=== PATIENT | male | born 1950 | race Two or more races ===

== ENCOUNTER 2022-09-20 10:08 | Emergency (ER) | payer OTHER, MEDICARE ==
[~2022-09-20] VITALS: Ht 170.2 cm; Wt 102.1 kg
[2022-09-20 10:10] VITALS: BP_SYST 164
[2022-09-20] MEDS ORDERED: NITROGLYCERIN 0.4 MG TAB.SUBL SL ONE (10:30)
[2022-09-20 10:42] LABS: BASOPHILS # (AUTO) 0.1 K/uL (0.0-0.2); BASOPHILS % (AUTO) 0.9 % (0.0-2.0); EOSINOPHILS # (AUTO) 0.2 K/uL (0.0-0.4); EOSINOPHILS % (AUTO) 2.5 % (0.0-4.0); HEMATOCRIT 42.4 % (36-54); HEMOGLOBIN 14.4 g/dL (14.0-18.0); LYMPHOCYTES # (AUTO) 0.8 K/uL (1.0-5.5); LYMPHOCYTES % (AUTO) 11.4 % (20.5-51.5); MEAN CORPUSCULAR HEMOGLOBIN 31 pg (27-31); MEAN CORPUSCULAR HGB CONC 34 % (32-36); MEAN CORPUSCULAR VOLUME 91 fL (79.0-98.0); MONOCYTES # (AUTO) 0.6 K/uL (0.0-1.0); MONOCYTES % (AUTO) 9.2 % (1.7-9.3); NEUTROPHILS # (AUTO) 5.2 K/uL (1.8-7.7); PLATELET COUNT (AUTO) 219 K/uL (130-430); RED BLOOD CELL COUNT(AUTO) 4.64 MIL/uL (4.2-6.2); RED CELL DISTRIBUTION WIDTH 14.1 % (9.0-15.0); WHITE BLOOD COUNT (AUTO) 6.8 K/uL (4.8-10.8)
[2022-09-20 11:07] LABS: ALANINE AMINOTRANSFERASE 15 U/L (12-78); ALBUMIN 3.2 g/dL (3.4-4.8); ANION GAP 6 (5-15); ASPARTATE AMINOTRANSFERASE 10 U/L (10-37); CALCIUM 8.9 mg/dL (8.4-11.0); CHLORIDE 95 mmol/L (98-107); CREATININE 1.05 mg/dL (0.55-1.30); GLUCOSE 131 mg/dL (70-99); TOTAL BILIRUBIN 0.7 mg/dL (0.0-1.0); UREA NITROGEN, BLOOD 9 mg/dL (8-21)
[2022-09-20] MEDS ORDERED: METH-634 PO (11:15)
[2022-09-20] MEDS ORDERED: ACET-2634 PO (11:15)
[2022-09-20] MEDS ORDERED: LIDO1ADH71 TD (11:15)
[2022-09-20 11:29] VITALS: BP_SYST 149
== END 2022-09-20 11:29 | disposition home or self-care (01) ==
LOC: SED 10:08
DX: S56.912A Strain of unspecified muscles, fascia and tendons at forearm level, left arm, initial encounter (principal); M25.522 Pain in left elbow; Z79.899 Other long term (current) drug therapy; X58.XXXA Exposure to other specified factors, initial encounter; Y93.89 Activity, other specified; Y92.89 Other specified places as the place of occurrence of the external cause; Y99.8 Other external cause status
CPT/HCPCS: 36415; 71045; 80053; 84484; 85025; 93005; 99285

== ENCOUNTER 2022-12-13 12:27 | Inpatient (IN) | payer OTHER, MEDICARE ==
[~2022-12-13] VITALS: Ht 170.2 cm; Wt 104.8 kg
[~2022-12-13 12:27] MED LIST: ACET-2634 PO; LIDO1ADH71 TD; METH-634 PO
[2022-12-13 12:40] VITALS: BP_SYST 147
--- NOTE | 2022-12-13 12:40 | NUR ---
Patient triaged and placed in waiting room. VSS and patient appears in no acute distress at this time. Accompanied by SON, awaiting available bed, and MD notified of need for MSE.
[2022-12-13] MEDS ORDERED: NACL 0.9% 1,000 ML IV ONE (13:45)
--- NOTE | 2022-12-13 14:08 | NUR ---
Patient to ER bed 06 to gown for evaluation. Side rails up.
--- NOTE | 2022-12-13 14:10 | NUR ---
ER DR. RENNER AT THE BEDSIDE EXAMINING PT
[2022-12-13 14:12] LABS: HEMATOCRIT 41.5 % (36-54); HEMOGLOBIN 14.1 g/dL (14.0-18.0); MEAN CORPUSCULAR HEMOGLOBIN 31 pg (27-31); MEAN CORPUSCULAR HGB CONC 34 % (32-36); MEAN CORPUSCULAR VOLUME 92 fL (79.0-98.0); PLATELET COUNT (AUTO) 192 K/uL (130-430); RED BLOOD CELL COUNT(AUTO) 4.51 MIL/uL (4.2-6.2); RED CELL DISTRIBUTION WIDTH 14.2 % (9.0-15.0); WHITE BLOOD COUNT (AUTO) 12.6 K/uL (4.8-10.8)
[2022-12-13 14:20] LABS: ANION GAP 9 (5-15); CALCIUM 8.6 mg/dL (8.4-11.0); CHLORIDE 87 mmol/L (98-107); CREATININE 1.48 mg/dL (0.55-1.30); GLUCOSE 97 mg/dL (70-99); UREA NITROGEN, BLOOD 24 mg/dL (8-21)
[2022-12-13 14:25] LABS: ALANINE AMINOTRANSFERASE 27 U/L (12-78); ALBUMIN 2.7 g/dL (3.4-4.8); ASPARTATE AMINOTRANSFERASE 30 U/L (10-37); TOTAL BILIRUBIN 0.5 mg/dL (0.0-1.0)
[2022-12-13 14:30] LABS: BILIRUBIN,URINE 1+ (NEGATIVE); BLOOD, URINE 3+ (NEGATIVE); CLARITY/URINE CLOUDY (CLEAR); COLOR,URINE YELLOW (YELLOW); GLUCOSE,URINE NEGATIVE (NEGATIVE); KETONES,URINE TRACE (NEGATIVE); LEUKOCYTE ESTERASE ,URINE 2+ (NEGATIVE); NITRITE, URINE NEGATIVE (NEGATIVE); PH,URINE 5.5 (5.0-8.0); PROTEIN URINE 2+ (NEGATIVE); UROBILINOGEN,URINE 0.2 (0.2-1.0)
--- NOTE | 2022-12-13 14:35 | NUR ---
pt presents to ed with complain of abd pain x 4 days and diarrhea. pt is awake a/o x4 and verbally responsive. no acute distress noted. breathing even and unlabored. per son, pt went to urgent care and started on cipro po yesterday however continues to have pain. pt resting in gurney with son at bedside. iv started to r ac, tolerated well. no redness or swelling noted. flushed well with blood return. safety measures in place.
[2022-12-13 14:36] LABS: BACTERIA,URINE FEW /HPF (None Seen); WBC,URINE 20-50 /HPF (0-3)
[2022-12-13 14:37] LABS: COARSE GRANULAR CASTS,URINE 0-10 /LPF (None Seen)
[2022-12-13] MEDS ORDERED: cefTRIAXone 1 GM IVPB PREMIX 50 ML IV ONE (14:45)
[2022-12-13 14:49] LABS: ATYPICAL LYMPHOCYTES % 2 % (0-0); BAND % (MANUAL) 7 % (0-6); BASOPHILS % (MANUAL) 0 % (0-2); EOSINOPHILS % (MANUAL) 0 % (0-7); LYMPHOCYTES % (MANUAL) 7 % (20-46); MONOCYTES % (MANUAL) 9 % (0-11)
--- NOTE | 2022-12-13 15:12 | NUR ---
Report received from ALEX Shine for continuity of care. Patient in stable condition.
[2022-12-13] MEDS ORDERED: MORPHINE 2 MG/ML INJ. SYRINGE IVP PRN (16:15)
--- NOTE | 2022-12-13 17:09 | NUR ---
Admit bed requested Patient will be admitted to care of . Admitted to TELE unit. Diagnosis HYPONATREMIA, ACUTE COMPLICATED UTI Inpatient (Yes or No) YES Observation (Yes or No) NO Orientation concerns or request close to nursing station (Yes or No) NO Covid Status NEG On vent or bipap NO Isolation requirements NO Needs a sitter NO From Home (Yes or if No enter name of facility) HOME Requires Dialysis (Yes or No) NO Med Rec Completed (Yes of No) YES
[2022-12-13] MEDS ORDERED: HYDR-4038 PO (17:12)
[2022-12-13] MEDS ORDERED: EZET10TA30 PO (17:12)
[2022-12-13] MEDS ORDERED: OMEP20CA15 PO (17:12)
[2022-12-13] MEDS ORDERED: ROSU5TAB13 PO (17:12)
[2022-12-13] MEDS ORDERED: CIPR500T5 PO (17:12)
[2022-12-13] MEDS ORDERED: CARV25TA55 PO (17:12)
[2022-12-13] MEDS ORDERED: OLME40TA18 PO (17:12)
[2022-12-13] MEDS: NACL 0.9% 1,000 ML IV SCH (17:13)
--- NOTE | 2022-12-13 17:20 | NUR ---
CONSULTATION PAGED REASON FOR CONSULTATION: HYPONATREMIA/KAREN WAS CONSULT CALLED? Y PERSON WHO WAS NOTIFIED: APPLE CONSULTING PHYSICIAN: ANDREINA MOSQUERA (MARICHUY LINDSEY COMMUTATOR REPAIRER) RELIEF OPERATOR SPECIALTY: NEPHRO RELIEF OPERATOR PHONE NUMBER: [phone] REQUESTING PHYSICIAN:
[2022-12-13 17:27] LABS: ALANINE AMINOTRANSFERASE 26 U/L (12-78); ALBUMIN 2.4 g/dL (3.4-4.8); ANION GAP 8 (5-15); ASPARTATE AMINOTRANSFERASE 35 U/L (10-37); CHLORIDE 89 mmol/L (98-107); CREATININE 1.31 mg/dL (0.55-1.30); GLUCOSE 79 mg/dL (70-99); TOTAL BILIRUBIN 0.4 mg/dL (0.0-1.0); UREA NITROGEN, BLOOD 22 mg/dL (8-21)
--- NOTE | 2022-12-13 18:22 | NUR ---
Patient will be admitted to care of ALEX Pastrana. Admitted to unit. Will go to room . Belongings list completed. Complete and up to date summary report printed. SBAR report to be given at bedside with opportunity for questions.
--- NOTE | 2022-12-13 18:23 | NUR ---
Received SBAR report from Dexter RN, patient arrived via gurney to room 102A. . Vital sign : BP152/86, HR 99, RR20, saturation 99% room air, no c/o pain/SOB, respiration even and unlabored IV infusing to right AC patent. Orientate patient to room/ environment, all safety secured will endorse to oncoming nurse
[2022-12-13 18:29] VITALS: BP_SYST 152
[2022-12-13] MEDS ORDERED: CALCIUM GLUCONATE 1 GM in NS 100 ML IV ONE (18:30)
[2022-12-13] MEDS ORDERED: POTASSIUM CHLORIDE 40 MEQ, LIDOCAINE JECT 2% PF 100 MG 50 MG in NS 250 ML IV ONE (18:30)
--- NOTE | 2022-12-13 18:30 | NUR ---
Tech at bedside for STAT Abdominal ultrasound
[2022-12-13 20:05] VITALS: BP_SYST 144
--- NOTE | 2022-12-13 20:05 | NUR ---
PM ASSESSMENT; - Patient is awake, alert, oriented X 4. Patient oriented to hospital room, call light, toileting, pain management and safety-teach back done. Patient informed that I (Neyda) will be his nurse and that their room number is 102-A. Pt denies any chest pain,pain,sob,or any acute distress. Side rails x2,Call light within reach. Discussed poc,all safety measures with pt and spouse at bedside if experiencing any sob,pain,chest pain to use call light to inform nurse, they verbalized understanding. Dr. Garner (Nephro) is at bedside will check new order and carry out. Cont to monitor pt.
[2022-12-13 20:06] VITALS: BP_SYST 144
[2022-12-13] MEDS ORDERED: CALCIUM GLUCONATE 1 GM/10 ML VIAL ONE (20:12)
[2022-12-13] MEDS ORDERED: KCL 40 mEq in 100 mL (PREMIX) 100 ML IV ONE (20:13)
[2022-12-13] MEDS ORDERED: LIDOCAINE 1%, 20 ML MDV 20 ML ONE (20:14)
[2022-12-13] MEDS ORDERED: MELATONIN 5 MG TABLET PO PRN (22:15)
--- NOTE | 2022-12-13 22:15 | NUR ---
NOTES; CALLED DR. LOWE REGARDING PT TAKES NYQUIL COLD & FLU OTC FOR SLEEP, MD DOESN'T RECOMMEND THIS INSTEAD MD ORDERED MELATONIN 10MG PO QHS PRN SLEEP. INFORMED PT THAT MD DOESN'T WANT HIM TO TAKE FOR SLEEP, HE VERBALIZED UNDERSTANDING.
[2022-12-14] MEDS ORDERED: ASPI-859 PO (00:02)
[2022-12-14 00:14] VITALS: BP_SYST 131
--- NOTE | 2022-12-14 01:47 | NUR ---
ROUNDS; -Pt is asleep. No s/s any acute distress noted. IVF infusing well, no s/s any infiltration noted. All safety measures in place. Call light w/in reach. Cont to monitor pt.
--- NOTE | 2022-12-14 04:05 | NUR ---
ROUNDS; -Pt is resting in bed comfortably. No s/s any acute distress noted. All safety measures in place. Call light w/in reach. Cont to monitor pt.
[2022-12-14] MEDS: NACL 0.9% 1,000 ML IV SCH ×3 (05:22→22:30)
--- NOTE | 2022-12-14 06:31 | NUR ---
CLOSING NOTES; -Pt is resting in bed comfortably. NO s/s any acute distress noted. Iv site patent no s/s any infiltration noted. IVF NS @100ml/hr. All safety measures in place. Pt's condition stable. Will endorse to next nurse to continuity of care.
--- NOTE | 2022-12-14 06:52 | NUR ---
NOTES; COLLECTED PASTY DARK GREEN STOOL SAMPLE FOR C-DIFF AND SENT TO LAB.
[2022-12-14 07:00] LABS: BASOPHILS % (AUTO) 0.4 % (0.0-2.0); EOSINOPHILS # (AUTO) 0.1 K/uL (0.0-0.4); EOSINOPHILS % (AUTO) 0.8 % (0.0-4.0); HEMATOCRIT 37.1 % (36-54); HEMOGLOBIN 12.6 g/dL (14.0-18.0); LYMPHOCYTES # (AUTO) 0.9 K/uL (1.0-5.5); LYMPHOCYTES % (AUTO) 10.2 % (20.5-51.5); MEAN CORPUSCULAR HEMOGLOBIN 31 pg (27-31); MEAN CORPUSCULAR HGB CONC 34 % (32-36); MEAN CORPUSCULAR VOLUME 92 fL (79.0-98.0); MONOCYTES # (AUTO) 1.5 K/uL (0.0-1.0); MONOCYTES % (AUTO) 17.2 % (1.7-9.3); NEUTROPHILS % (AUTO) 71.4 % (40.0-70.0); PLATELET COUNT (AUTO) 161 K/uL (130-430); RED BLOOD CELL COUNT(AUTO) 4.05 MIL/uL (4.2-6.2); WHITE BLOOD COUNT (AUTO) 8.5 K/uL (4.8-10.8)
[2022-12-14 07:39] LABS: ALANINE AMINOTRANSFERASE 37 U/L (12-78); ALBUMIN 2.1 g/dL (3.4-4.8); ANION GAP 10 (5-15); ASPARTATE AMINOTRANSFERASE 48 U/L (10-37); CALCIUM 7.9 mg/dL (8.4-11.0); CHLORIDE 93 mmol/L (98-107); CREATININE 1.13 mg/dL (0.55-1.30); GLUCOSE 96 mg/dL (70-99); THYROID STIMULATING HORMONE 1.19 uIu/mL (0.34-4.82); TOTAL BILIRUBIN 0.4 mg/dL (0.0-1.0); UREA NITROGEN, BLOOD 17 mg/dL (8-21)
--- NOTE | 2022-12-14 07:52 | NUR ---
OPENING NOTES: PATIENT IN BED A/OX 4. NO S/S OF DISTRESS OR PAIN REPORTED. BREATHING IS EVEN AND UNLABORED ON RA 99%. IV FLUID RUNNING PRESCRIBED. EDUCATED PATIENT ON USE OF CALL LIGHT. PATIENT VERBALIZED UNDERSTANDING. ALL NEEDS MET AT THIS TIME, SAFETY CHECKS MADE AND CALL LIGHT WITHIN REACH.
[2022-12-14 08:00] VITALS: BP_SYST 145
[2022-12-14 11:21] VITALS: BP_SYST 141
--- NOTE | 2022-12-14 12:35 | NUR ---
MD: DR LOWE AT BEDSIDE WITH PATIENT AND FAMILY.
[2022-12-14] MEDS ORDERED: POTASSIUM CHLORIDE 20 MEQ/PKT PACKET PO ONE (13:15)
--- NOTE | 2022-12-14 13:31 | NUR ---
Dietitian Recommendations * Continue cardiac, lactose-free, vegetarian diet * Adhere to pt preferences JANESSA, MPH, YULISA Please refer to RD Assessment for further details. Thanks! Addendum: 12/14/22 at [address] Amended: Links added. Addendum: 12/14/22 at [address] NEW Dietitian Recommendations * Ordered no lactose, vegetarian diet * Adhere to pt preferences JANESSA, TARI, YULISA
[2022-12-14] MEDS ORDERED: OMEPRAZOLE Non-Formulary 20 MG CAPSULE.DR PO SCH (13:45)
[2022-12-14] MEDS ORDERED: ROSUVASTATIN CALCIUM 5 MG/TAB (CRESTOR) PO SCH (13:45)
[2022-12-14] MEDS ORDERED: OLMESARTAN MEDOXOMIL PO SCH (13:45)
[2022-12-14] MEDS ORDERED: ACETAMINOPHEN 500 MG TABLET PO PRN (13:45)
[2022-12-14] MEDS ORDERED: methocarbamoL 500 MG TABLET PO ONE (14:15)
[2022-12-14] MEDS ORDERED: LOSARTAN POTASSIUM 50 MG TABLET (COZAAR) PO ONE (14:15)
[2022-12-14] MEDS ORDERED: ATORVASTATIN 20 MG TABLET PO ONE (14:15)
[2022-12-14] MEDS ORDERED: EZETIMIBE 10 MG TABLET PO ONE (14:15)
[2022-12-14] MEDS ORDERED: hydrALAZINE HCL 25 MG TABLET PO ONE (14:15)
[2022-12-14] MEDS ORDERED: PANTOPRAZOLE SODIUM 40 MG TAB PO ONE (14:15)
[2022-12-14] MEDS ORDERED: ASPIRIN 81 MG TABLET(ECOTRIN) PO ONE (14:15)
[2022-12-14 16:12] VITALS: BP_SYST 147
[2022-12-14] MEDS ORDERED: ACETAMINOPHEN 325 MG TABLET PO PRN ×2 (16:15→16:30)
--- NOTE | 2022-12-14 16:19 | NUR ---
PATIENT HAS FEVER OF 102. CONTACTED DR LOWE AND RECEIVED ORDERS FRO BLOOD AND URINE CULTURES AND ACETAMINOPHEN. Addendum: 12/14/22 at 1627 by Suri Brewer LVN 100.2 TEMPERATURE NOT 102
[2022-12-14] MEDS ORDERED: cefTRIAXone 1 GM IVPB PREMIX 50 ML IV SCH (17:00)
[2022-12-14] MEDS ORDERED: methocarbamoL 500 MG TABLET PO PRN (18:00)
--- NOTE | 2022-12-14 18:44 | NUR ---
CLOSING NOTES: PATIENT IN BED A/O X4. FAMILY IS AT BEDSIDE. NO S/S OF DISTRESS OR PAIN REPORTED. BREATHING IS EVEN AND UNLABORED ON RA 99%. IV FLUIDS ARE RUNNING PRESCRIBED. ALL NEEDS MET AT THIS TIME, SAFETY CHECKS MADE AND CALL LIGHT WITHIN REACH. WILL ENDORSE TO JUNIOR QA ANALYST NURSE.
[2022-12-14 19:00] VITALS: BP_SYST 121
--- NOTE | 2022-12-14 19:15 | NUR ---
change of shift.pt.presents quiescent affect;calm.iv access location rt.forearm intact;patent iv fluids infusing.pt.utilizing urinal w/in access of the pt.pt.capable to reposition self,ambulate un-assisted.general status stable.respiratory status stable un-labored@room air.call light/telephone w/in access of the pt.
[2022-12-14 20:00] VITALS: BP_SYST 121
--- NOTE | 2022-12-14 20:00 | NUR ---
pt.assessed.v/s assessed values wnl.no c/o pain,nausea.pt.apprised snacks/beverages are available w/in the shift.pt.presents specific diet;vegan;vegetarian.pt.receives food from home.more palatable to the pt.iv access intact;patent.pt.capable to reposition self/ambulate un-assisted.call light/telephone w/in access of the pt.
[2022-12-14] MEDS: hydrALAZINE HCL 25 MG TABLET PO SCH (20:27)
[2022-12-14] MEDS: HEPARIN SODIUM,PORCINE 5,000 UNITS/ML VIAL SUBCUT SCH (20:29)
--- NOTE | 2022-12-14 21:00 | NUR ---
2100p medications administered.pt.capable ti ingest the po medications w/out difficulty.no c/o pain,nausea.call light/telephone w/in access of the pt.
--- NOTE | 2022-12-14 22:00 | NUR ---
pt.assessed.pt.quiescent.no c/o pain,nausea.no requests posited@this hour.pt.inquired if any diet guidelines are available to resolve;correct electrolytes imbalanced.director financial planning consult placed for 12/15/22.call light/telephone w/in access of the pt.
[2022-12-15] VITALS: BP_SYST 139
--- NOTE | 2022-12-15 | NUR ---
pt.assessed.v/s assessed values wnl.no c/o pain,nausea.no requests posited@this hour.urinal attended to placed w/in access of the pt.pt.capable to reposition self.call light/telephone w/in access of the pt.
--- NOTE | 2022-12-15 02:00 | NUR ---
pt.assessed.pt.quiescent.per flacc pain mgx pt.absent facial grimaces/body posturing.urinal w/in access of the pt.pt.capable to reposition self.call light/telephone w/in access of the pt.
--- NOTE | 2022-12-15 04:00 | NUR ---
pt.assessed.pt.quiescent.per flacc pain mgx pt.absent facial grimaces/body posturing.urinal w/in access of the pt. pt.capable to reposition self.call light/telephone w/in access of the pt.
[2022-12-15 05:18] LABS: BASOPHILS % (AUTO) 0.3 % (0.0-2.0); EOSINOPHILS # (AUTO) 0.1 K/uL (0.0-0.4); HEMATOCRIT 38.8 % (36-54); HEMOGLOBIN 13.3 g/dL (14.0-18.0); LYMPHOCYTES # (AUTO) 0.6 K/uL (1.0-5.5); LYMPHOCYTES % (AUTO) 6.4 % (20.5-51.5); MEAN CORPUSCULAR HEMOGLOBIN 32 pg (27-31); MEAN CORPUSCULAR HGB CONC 34 % (32-36); MEAN CORPUSCULAR VOLUME 92 fL (79.0-98.0); MONOCYTES # (AUTO) 1.4 K/uL (0.0-1.0); MONOCYTES % (AUTO) 14.1 % (1.7-9.3); NEUTROPHILS # (AUTO) 7.7 K/uL (1.8-7.7); NEUTROPHILS % (AUTO) 78.2 % (40.0-70.0); PLATELET COUNT (AUTO) 170 K/uL (130-430); RED BLOOD CELL COUNT(AUTO) 4.22 MIL/uL (4.2-6.2); RED CELL DISTRIBUTION WIDTH 14.5 % (9.0-15.0); WHITE BLOOD COUNT (AUTO) 9.8 K/uL (4.8-10.8)
[2022-12-15 05:50] LABS: ALANINE AMINOTRANSFERASE 39 U/L (12-78); ALBUMIN 2.1 g/dL (3.4-4.8); ANION GAP 10 (5-15); ASPARTATE AMINOTRANSFERASE 35 U/L (10-37); CALCIUM 7.8 mg/dL (8.4-11.0); CHLORIDE 94 mmol/L (98-107); CREATININE 1.01 mg/dL (0.55-1.30); GLUCOSE 97 mg/dL (70-99); TOTAL BILIRUBIN 0.4 mg/dL (0.0-1.0); UREA NITROGEN, BLOOD 10 mg/dL (8-21)
--- NOTE | 2022-12-15 06:00 | NUR ---
pt.assessed.pt.quiescent,somnolent.per flacc pain mgx PT.ABSENT FaCial GRiMaCES/BODY PoSTUrING.pt.capable to reposition self.iv access intact;patent.IV FlUIDS INFUSing.PT.cAPaBLE TO reposition self.URINAL.w/IN ACcESs OF THe Pt.CAll lIGHT/TELEPHONE w/IN ACCESS OF THe PT.
--- NOTE | 2022-12-15 07:35 | NUR ---
Opening Notes Patient is AOx4. No Sob noted. Breathing is even and nonlabored, on room air. Vital signs obtained, as documented. Patient is ambulatory, steady gait. Patient denies pain. IV appears to be patent. IVF running. No ss of infiltration noted. Patient is eating breakfast. All safety precautions in place and call light within reach.
[2022-12-15 08:00] VITALS: BP_SYST 150
[2022-12-15] MEDS: PANTOPRAZOLE SODIUM 40 MG TAB PO SCH (10:22)
[2022-12-15] MEDS: LOSARTAN POTASSIUM 50 MG TABLET (COZAAR) PO SCH (10:22)
[2022-12-15] MEDS: EZETIMIBE 10 MG TABLET PO SCH (10:22)
[2022-12-15] MEDS: ASPIRIN 81 MG TABLET(ECOTRIN) PO SCH (10:23)
[2022-12-15] MEDS: hydrALAZINE HCL 25 MG TABLET PO SCH ×2 (10:23→20:43)
[2022-12-15] MEDS: HEPARIN SODIUM,PORCINE 5,000 UNITS/ML VIAL SUBCUT SCH ×2 (10:25→20:45)
[2022-12-15] MEDS: NACL 0.9% 1,000 ML IV SCH ×2 (10:25→18:09)
[2022-12-15] MEDS: ATORVASTATIN 20 MG TABLET PO SCH (10:25)
--- NOTE | 2022-12-15 10:25 | NUR ---
notes morning medications administered. Patient denies pain. NO SOB noted. IV not patent. Removed. covered site with gauze and tape. No active bleeding. Attempted to insert new IV, unsuccessful.
[2022-12-15 11:21] VITALS: BP_SYST 160
--- NOTE | 2022-12-15 11:47 | NUR ---
IV new Iv inserted to LAC 22 g. Flushes well. patent. IVF running.
--- NOTE | 2022-12-15 14:22 | NUR ---
PAGED DR. CORTÉS
[2022-12-15] MEDS ORDERED: AUG875 PO ×2 (14:35)
--- NOTE | 2022-12-15 14:37 | NUR ---
SPOKE TO DR. MOO COSTELLO MADE AWARE OF URINE CULTURE RESULTS, ESBL AND E COLI OF URINE. MD TO INPUT ORDERS.
[2022-12-15] MEDS ORDERED: PIPERACILLIN/TAZO 3.375/DEX-IS 50 ML IV ONE (14:45)
--- NOTE | 2022-12-15 14:46 | NUR ---
HOLD DISCHARGE SPOKE WITH DR. CORTÉS. PER MD, PATIENT FIRST NEEDS 1-2 DOSES OF IV MEROPENEM BEFORE DISCHARGE HOME WITH PO ANTIBIOTIC.
[2022-12-15 15:20] VITALS: BP_SYST 129
--- NOTE | 2022-12-15 16:39 | NUR ---
NOTES PATIENT IS RESTING AWAKE AND IN BED. DENIES PAIN. NO SOB NOTED. SPOKE TO MD AND MD MADE AWARE PATIENT HAS 24 G, MULTIPLE UNSUCCESSFUL ATTEMPTS TO INSERT [address] IV [address] W/ CONTRAST. PER MD, TO CANCEL CT. PATIENT CAN DO CT OUTPATIENT.
[2022-12-15] MEDS: MEROPENEM 1 GM in NS 100 ML IV SCH ×2 (16:57→23:58)
--- NOTE | 2022-12-15 18:35 | NUR ---
Nutrition Consult Nutrition consult received d/t electrolyte imbalance on 12/15/22 @ 0900. Patient was seen and assessed by RD on 12/14/22. Please refer to recent Nutrition Assessment for details. RD to continue to follow as per nutrition care standards. CINDY, TIFFANIE
--- NOTE | 2022-12-15 18:53 | NUR ---
Closing Notes Patient is sitting in chair, eating dinner. No ss of distress noted. Breathing is even and nonlabored, on room air. Patient denies pain. Breathing is even and nonlabored, on room air. Iv patent. IVF running. Patient is stable. All needs met. Bed is locked and at lowest position. Safety precautions in place and call light within reach.
--- NOTE | 2022-12-15 19:40 | NUR ---
opening note Patient resting in bed. He finished his dinner and is ready to be connected to his IV (it has SL while he ate dinner). No distress, denies pain, bed is locked in lowest position and call light w/in reach.
[2022-12-15 20:00] VITALS: BP_SYST 147
--- NOTE | 2022-12-15 20:43 | NUR ---
MEDS Patient was administered scheduled medications. He swallowed tablet with water. He ambulates to restroom and does not want the bed alarm on. he wants lights out except for bathroom light. Call light w/in reach.
[2022-12-16] VITALS: BP_SYST 129
[2022-12-16] MEDS: NACL 0.9% 1,000 ML IV SCH (00:01)
[2022-12-16 00:05] VITALS: BP_SYST 137
[2022-12-16 02:17] VITALS: BP_SYST 129
--- NOTE | 2022-12-16 04:22 | NUR ---
Rounds IV alarming Patient resting in bed, visible chest rise and fall. Denies pain or discomfort. IV patent.
[2022-12-16 07:00] VITALS: BP_SYST 155
--- NOTE | 2022-12-16 07:25 | NUR ---
OPENING NOTES Patient laying in bed resting. A/O x 4, Niuean speaking. Patient breathing even and unlabored on room air. No pain, no distress, no SOB. Patient is on a Regular Vegan diet. Patient has LAC 24g patent on SL. Patient is BRP. Bed is locked in lowest position. Call light within reach, all needs met, will continue with plan of care.
[2022-12-16] MEDS ORDERED: NITR-85 PO (08:35)
[2022-12-16] MEDS: MEROPENEM 1 GM in NS 100 ML IV SCH (08:47)
[2022-12-16] MEDS: ASPIRIN 81 MG TABLET(ECOTRIN) PO SCH (08:55)
[2022-12-16] MEDS: EZETIMIBE 10 MG TABLET PO SCH (08:55)
[2022-12-16] MEDS: hydrALAZINE HCL 25 MG TABLET PO SCH (08:56)
[2022-12-16] MEDS: PANTOPRAZOLE SODIUM 40 MG TAB PO SCH (08:58)
[2022-12-16] MEDS: LOSARTAN POTASSIUM 50 MG TABLET (COZAAR) PO SCH (08:58)
[2022-12-16] MEDS: ATORVASTATIN 20 MG TABLET PO SCH (08:58)
[2022-12-16] MEDS: HEPARIN SODIUM,PORCINE 5,000 UNITS/ML VIAL SUBCUT SCH (08:59)
[2022-12-16 09:18] VITALS: BP_SYST 155
[2022-12-16 09:44] VITALS: BP_SYST 155
--- NOTE | 2022-12-16 10:18 | NUR ---
PATIENT IS DISCHARGE, LEFT HOME WITH . Addendum: 12/16/22 at 1023 by Jessica Elder LVN D/C Patient Patient given medication reconciliation form and D/C instructions. Exit Care provided. Patient verbalized understanding. MD Qureshi discussed with patient the results and treatment provided. Ambulatory with steady gait for discharge to home. Patient in stable condition, ID band removed. IV catheter removed, intact and dressing applied, no active bleeding. Med rec given. Patient educated on pain management. All belongings sent with patient.
== END 2022-12-16 10:18 | disposition home or self-care (01) | DRG 640 ==
LOC: SED 12:27 → STU 16:12 → SMU 12-15 11:30
PROVIDERS: ADMIT Family Medicine; ATTEND Family Medicine
DX: E87.1 Hypo-osmolality and hyponatremia (principal); N17.0 Acute kidney failure with tubular necrosis; N39.0 Urinary tract infection, site not specified; E44.0 Moderate protein-calorie malnutrition; E86.0 Dehydration; I25.10 Atherosclerotic heart disease of native coronary artery without angina pectoris; E87.6 Hypokalemia; K21.9 Gastro-esophageal reflux disease without esophagitis; I10 Essential (primary) hypertension; Z20.822 Contact with and (suspected) exposure to COVID-19; E78.5 Hyperlipidemia, unspecified; F10.20 Alcohol dependence, uncomplicated; Y90.9 Presence of alcohol in blood, level not specified; B96.20 Unspecified Escherichia coli [E. coli] as the cause of diseases classified elsewhere; Z85.46 Personal history of malignant neoplasm of prostate; Z95.1 Presence of aortocoronary bypass graft; Z79.82 Long term (current) use of aspirin; Z79.1 Long term (current) use of non-steroidal anti-inflammatories (NSAID); Z79.899 Other long term (current) drug therapy; Z68.36 Body mass index [BMI] 36.0-36.9, adult
CPT/HCPCS: 36415; 76376; 76770; 80053; 81000; 82533; 82570; 83605; 83930; 83935; 84302; 84443; 85007; 85025; 85027; 87040; 87086; 87230-TC; 96365; 99285; G0378; J0610; J0696; J1644; J2001; J2185; J3480; J7050

== ENCOUNTER 2023-03-06 11:43 | Outpatient (CLI) | payer OTHER, MEDICARE ==
[~2023-03-06 11:43] MED LIST changes: +ASPI-859 PO; +EZET10TA30 PO; +FURO-150 PO; +HYDR-4038 PO; +OLME40TA18 PO; +OMEP20CA15 PO; +ROSU5TAB13 PO
== END 2023-03-06 18:54 | disposition home or self-care (01) ==
LOC: SCT 11:43
PROVIDERS: ATTEND Internal Medicine Infectious Disease
DX: K82.0 Obstruction of gallbladder (principal); J98.11 Atelectasis; N10 Acute pyelonephritis; I70.0 Atherosclerosis of aorta
CPT/HCPCS: 76376